=== PATIENT | male | born 1935 | race African-American/Black ===

== ENCOUNTER 2021-06-11 06:33 | Outpatient (CLI) | payer OTHER | END 2021-06-11 06:34 | disposition home or self-care (01) | LOC: BURMANOR 06:33 | PROVIDERS: ATTEND Registered Nurse Community Health | DX: S79.912A Unspecified injury of left hip, initial encounter (principal) ==

== ENCOUNTER 2021-06-17 14:19 | Emergency (ER) | payer OTHER ==
[~2021-06-17 14:19] MED LIST: Calcium Chloride 1 GM/10 ML Abboject SYRINGE ONE; EPINEPHrine 1 MG/10 ML Abboject SYRINGE ONE
[2021-06-17] MEDS ORDERED: Amiodarone 150 MG/3 ML VIAL ONE (14:48)
[2021-06-17 15:04] LABS: #Basophils 0.1 thou/uL (0.0-0.2); #Lymphocytes 1.1 thou/uL (1.20-3.40); #Monocytes 1.1 thou/uL (0.11-0.59); #Neutrophils 13.2 thou/uL (1.40-6.50); %Basophils 0.6 % (0.0-1.0); %Lymphocytes 6.9 % (21.0-51.0); %Neutrophils 85.4 % (42.0-75.0); Hemoglobin 17.8 g/dL (14.0-18.0); Mean Corpuscular HGB CONC 34.8 g/dL (32.0-36.0); Mean Corpuscular Hemoglobin 29.4 pg (27.0-31.0); Mean Corpuscular Volume 84.5 fL (78.0-98.0); Platelet Count 259 thou/uL (130-400); Red Blood Cell (RBC) Count 6.06 mill/uL (4.70-6.10); White Blood Cell (WBC) Count 15.5 thou/uL (4.8-10.8)
[2021-06-17] MEDS ORDERED: Fentanyl 100 MCG/2 ML VIAL ONE ×3 (15:06→15:53)
[2021-06-17] MEDS ORDERED: EPINEPHrine 1 MG/ML AMP ONE (15:09)
[2021-06-17 15:26] LABS: ALT (SGPT) 58 U/L (8-55); AST (SGOT) 37 U/L (5-34); Albumin 3.7 g/dL (3.4-4.8); Alkaline Phosphatase 71 U/L (40-110); BUN (Urea Nitrogen) 227 mg/dL (8.4-25.7); Bilirubin, Total 0.9 mg/dL (0.2-1.2); CK (CPK) 1168 U/L (30-200); Calc. Creatinine Clearance 0 mL/min (70-130); Calcium 10.1 mg/dL (7.8-10.44); Carbon Dioxide Less than 8 mmol/L (23-31); Chloride 102 mmol/L (98-107); Globulin 4.5 g/dL (2.4-3.5); Glucose 123 mg/dL (83-110); Lipase 20 U/L (8-78); Protein, Total 8.2 g/dL (5.8-8.1); Sodium 139 mmol/L (136-145)
[2021-06-17 15:31] LABS: Potassium Greater than 9.5 mmol/L (3.5-5.1)
[2021-06-17] MEDS ORDERED: Albuterol Sulfate 2.5 mg/3 ml Neb ONE (15:41)
[2021-06-17 15:43] LABS: CKMB 5.5 ng/mL (0-6.6)
[2021-06-17] MEDS ORDERED: Sodium Bicarb 50 MEQ/50 ML Abboject 8.4% SYRINGE ONE (16:17)
[2021-06-17 16:22] LABS: Base Excess-Venous -9.2 mmol/L (-2.0 to 3.0); Bicarbonate (HCO3v) 21.1 mmol/L (22.0-28.0); CO2 Tension (PvCO2) 68.2 mmHg (42.0-51.0); Calcium, Ionized 1.45 mmol/L (1.15-1.33); Chloride 115 mmol/L (98-107); Hemoglobin - Calc 11.6 g/dL (14.0-18.0); Potassium 6.3 mmol/L (3.5-5.1); Sodium 147 mmol/L (138-145); T. Carbon Dioxide 23.2 mmol/L (22.0-28.0)
[2021-06-17] MEDS ORDERED: Insulin Regular 300 UNITS/3 ML VIAL ONE (16:47)
== END 2021-06-17 17:00 | disposition short-term general hospital (02) ==
LOC: BURERS 14:19
DX: I46.9 Cardiac arrest, cause unspecified (principal); N17.9 Acute kidney failure, unspecified; E87.5 Hyperkalemia; D64.9 Anemia, unspecified; Z79.899 Other long term (current) drug therapy
CPT/HCPCS: 36415; 36416; 71045; 80053; 82330; 82550; 82553; 82803; 83605; 83690; 83880; 84484; 85025; J0171; J0282; J1815; J3010; J7611